=== PATIENT | female | born 1980 | race Caucasian/White ===

== ENCOUNTER 2020-06-16 21:03 | Emergency (ER) | payer MEDICAID ==
[~2020-06-16] VITALS: Ht 162.6 cm; Wt 69.5 kg
--- NOTE | 2020-06-16 21:40 | NUR ---
MEERA WOODWARD. RECEIVED REPORT FROM JENNY WOODWARD AT THIS TIME. PT IN RAD
[2020-06-16] MEDS ORDERED: KETOROLAC 30 MG/1 ML ONE (21:51)
[2020-06-16] MEDS ORDERED: MORPHINE SULFATE 4 MG/ML, 1ML ONE (21:51)
[2020-06-16] MEDS ORDERED: MORPHINE SULFATE 4 MG/ML, 1ML IVPush PRN (22:00)
[2020-06-16] MEDS ORDERED: SODIUM CHLORIDE FLUSH 10ML SYR IVF ONE (22:00)
[2020-06-16] MEDS ORDERED: OMNIPAQUE 350 MG/ML, 100ML BOTTLE ONE (22:00)
[2020-06-16] MEDS ORDERED: KETOROLAC 30 MG/1 ML IVPush ONE (22:00)
--- NOTE | 2020-06-16 22:04 | NUR ---
BREAK RN. PT BACK FROM RADIOLOGY. IV PLACED, LABS DRAWN. PT MEDICATED NOTED PER MD ORDER FOR 10 LEFT SIDED RIB PAIN "THE PAIN SORT OF GOES FROM RIBS INTO MY LEFT UPPER STOMACH AND AROUND TO BACK." CONT PULSE OX, BP MONITORS APPLIED. VSS. DENIES NEED TO USE RESTROOM. PT UPDATED ON NPO STATUS, VERBALIZED UNDERSTANDING. PT REPORTS "I WAS VISITING MY BOYFRIEND ON [address] AND WE WERE WALKING OUT TO THE CAR, SOMEHOW I TRIPPED OR SLIPPED, HIT MY RIBS PRETTY HARD, THE PAIN IS GETTING WORSE." DENIES LOC OR HITTING HEAD WITH FALL. A&XO4. FALL PRECUATIONS IN PLACE. SIDE RAILS UPX2. CT CALLED AND NOTIFIED PT READY FOR EXAM.
[2020-06-16 22:07] LABS: MEAN CORPUSCULAR HEMOGLOBIN 33.2 pg (27.0-34.8); MEAN CORPUSCULAR HGB CONC 33.7 g/dL (32.4-35.8); MEAN PLATELET VOLUME 8.3 fL (7.4-10.4); PLATELET COUNT 425 x10^3/uL (130-400)
--- NOTE | 2020-06-16 22:17 | NUR ---
BREAK RN. PT REPORTS IMMEDIATE PAIN RELIEF "I'M FEELING A LOT BETTER, BASICALLY NO PAIN, I FEEL LESS TENSE." VSS. CALL LIGHT IN REACH
[2020-06-16 22:20] LABS: ALANINE AMINOTRANSFERASE 26 U/L (12-78); ANION GAP 5 mmol/L (5-15); CALCIUM 8.8 mg/dL (8.5-10.1); CHLORIDE 108 mmol/L (98-107)
[2020-06-16 22:25] LABS: ALKALINE PHOSPHATASE 99 U/L (45-117); BILIRUBIN,TOTAL 0.2 mg/dL (0.2-1.0); CREATININE 0.91 mg/dL (0.55-1.02); TOTAL PROTEIN 7.9 g/dL (6.4-8.2)
[2020-06-16 22:27] LABS: MD YES
--- NOTE | 2020-06-16 22:28 | NUR ---
BEDSIDE REPORT AND TRANSFER OF CARE BACK TO PRIMARY CRISSY [facility] AT THIS TIME.
[2020-06-16 22:32] LABS: <PLATELET ESTIMATE> INCREASED; <PLT MORPHOLOGY> NORMAL PLT MORPH; <RBC MORPHOLOGY> NORMAL; EOS% (MANUAL) 2 % (1-7); LYMPHS% (MANUAL) 50 % (22-44); MONOS#(MANUAL) 0.39 x10^3/uL (0.3-2.7); MONOS% (MANUAL) 4 % (2-9); REACTIVE LYMPHS # (MANUAL) 0.29 x10^3/uL (0-0); REACTIVE LYMPHS % (MANUAL) 3 % (0-0); SEG#(MANUAL) 4.02 x10^3/uL (1.8-6.8); SEGS% (MANUAL) 41 % (42-75)
--- NOTE | 2020-06-16 22:53 | NUR ---
Pt back from imaging.
--- NOTE | 2020-06-16 23:07 | NUR ---
RN at bedside, pt reports they have no pain after receiving the morphine.
[2020-06-16 23:47] VITALS: BP 120/80
--- NOTE | 2020-06-16 23:50 | NUR ---
RN at bedside. Pt agrees with and understands discharge plan and instructions.
== END 2020-06-17 00:11 | disposition home or self-care (01) ==
LOC: ED 22:54
DX: S20.212A Contusion of left front wall of thorax, initial encounter (principal); R10.12 Left upper quadrant pain; R00.0 Tachycardia, unspecified; F17.200 Nicotine dependence, unspecified, uncomplicated; X58.XXXA Exposure to other specified factors, initial encounter; Y93.89 Activity, other specified; Y92.009 Unspecified place in unspecified non-institutional (private) residence as the place of occurrence of the external cause; Y99.8 Other external cause status
CPT/HCPCS: 36415; 71101; 74177; 80053; 84703; 85025; 96374; 96375; 99285; J1885; J2270; Q9967